=== PATIENT | male | born 1970 | race Caucasian/White ===

== ENCOUNTER 2018-12-20 10:35 | Emergency (ER) | payer BC, OTHER ==
[~2018-12-20] VITALS: Ht 177.8 cm; Wt 74.9 kg
[~2018-12-20 10:35] MED LIST: HYDR-4353 PO
[2018-12-20 10:49] VITALS: BP 134/94
== END 2018-12-20 12:52 | disposition home or self-care (01) ==
LOC: ER 10:36
DX: M79.645 Pain in left finger(s) (principal); I10 Essential (primary) hypertension; F10.99 Alcohol use, unspecified with unspecified alcohol-induced disorder; Z86.19 Personal history of other infectious and parasitic diseases; Z79.899 Other long term (current) drug therapy; Y90.9 Presence of alcohol in blood, level not specified
CPT/HCPCS: 99281

== ENCOUNTER 2018-12-21 18:26 | Emergency (ER) | payer BC, OTHER ==
[~2018-12-21] VITALS: Ht 177.8 cm; Wt 74.0 kg
[2018-12-21 18:55] VITALS: BP 128/78
--- NOTE | 2018-12-21 19:02 | NUR ---
pt seen last Sat here for left hand injury. pt has had improvement with hand and would like clearance to return to work
== END 2018-12-21 19:38 | disposition home or self-care (01) ==
LOC: ER 18:27
DX: M25.532 Pain in left wrist (principal); I10 Essential (primary) hypertension
CPT/HCPCS: 99281